=== PATIENT | female | born 1945 | race Caucasian/White ===

== ENCOUNTER → 2016-08-09 | Outpatient (CLI) | payer MEDICARE, OTHER ==
[~2016-08-09] MED LIST: CETI10TA24 PO; FLUT12HF2 INH; LOSA50TA2 PO; MONT10TA6 PO; OMAL150V INJ; VERA120T5 PO
== END | disposition home or self-care (01) ==
LOC: CFH 15:51
PROVIDERS: ATTEND Internal Medicine
DX: Z12.31 Encounter for screening mammogram for malignant neoplasm of breast (principal)
CPT/HCPCS: 77063; G0202

== ENCOUNTER → 2017-08-15 | Outpatient (CLI) | payer MEDICARE, OTHER | END | disposition home or self-care (01) | LOC: CFH 13:50 | PROVIDERS: ATTEND Internal Medicine | DX: Z12.31 Encounter for screening mammogram for malignant neoplasm of breast (principal) | CPT/HCPCS: 77063; 77067 ==

== ENCOUNTER → 2018-04-06 | Outpatient (CLI) | payer MEDICARE, OTHER | END | disposition home or self-care (01) | LOC: CFH 12:57 | PROVIDERS: ATTEND Licensed Practical Nurse | DX: M85.80 Other specified disorders of bone density and structure, unspecified site (principal) | CPT/HCPCS: 77080 ==

== ENCOUNTER → 2018-09-11 | Outpatient (CLI) | payer MEDICARE, OTHER | END | disposition home or self-care (01) | LOC: CFH 13:51 | PROVIDERS: ATTEND Internal Medicine | DX: Z12.31 Encounter for screening mammogram for malignant neoplasm of breast (principal) | CPT/HCPCS: 77063; 77067 ==

== ENCOUNTER → 2019-12-03 | Outpatient (CLI) | payer MEDICARE, OTHER ==
[~2019-12-03] MED LIST changes: -CETI10TA24 PO; +CETI10TA76 PO; +VERA120T13 PO; -VERA120T5 PO
== END | disposition home or self-care (01) ==
LOC: CFH 15:00
PROVIDERS: ATTEND Internal Medicine
DX: Z12.31 Encounter for screening mammogram for malignant neoplasm of breast (principal)
CPT/HCPCS: 77063; 77067

== ENCOUNTER → 2019-12-24 | Outpatient (CLI) | payer MEDICARE, OTHER | END | disposition home or self-care (01) | LOC: RAD 12:26 | PROVIDERS: ATTEND Nurse Practitioner | DX: J34.89 Other specified disorders of nose and nasal sinuses (principal); M50.30 Other cervical disc degeneration, unspecified cervical region; G44.311 Acute post-traumatic headache, intractable | CPT/HCPCS: 70450; 70486 ==

== ENCOUNTER 2019-12-27 12:28 | Outpatient (CLI) | payer MEDICARE, OTHER | END 2019-12-27 23:59 | disposition home or self-care (01) | LOC: CFH 12:28 | PROVIDERS: ATTEND Internal Medicine | DX: R92.2 Inconclusive mammogram (principal) | CPT/HCPCS: 76641 ==